=== PATIENT | male | born 1965 | race Caucasian/White ===

== ENCOUNTER → 2018-01-08 15:45 | Outpatient (CLI) | payer OTHER, SELFPAY ==
--- NOTE | 2018-01-08 15:49 | DI.RAD.S_ITS ---
PROCEDURE: XR LUMBAR SPINE 2-3V INDICATIONS: RADICULOPATHY, LUMBAR REGION TECHNIQUE: 3 views of the lumbar spine were acquired. COMPARISON: [facility], CR, XR LUMBAR SPINE 2 OR 3 VIEWS, 05/28/2015, 15:54. [facility], RF, LUMBAR TRANSFORAMINAL RYAN, 12/05/2017, 9:15. [facility], MR, MR LUMBAR SPINE WITHOUT CONTRAST, 11/23/2017, 8:14. [facility], CR, XR LUMBAR SPINE FLEXION EXTENSION, 11/22/2017, 9:56. [facility], CT, CT LUMBAR SPINE WITHOUT CONTRAST, 10/20/2017, 8:07. [facility], CT, CT LUMBAR SPINE WITHOUT CONTRAST, 10/20/2017, 8:07. FINDINGS: Bones: 5 [id number] vertebrae are present. There is mildly kyphotic bony alignment centered at L2-L3 associated with the degenerative disc disease and disc reduction at L2-3 and L3-4 levels. Additionally, there is stable grade 1 anterolisthesis of L5 on S1 fixed in position by bilateral transverse pedicle screws and vertical fixation rods crossing L5-S1. No evidence of device loosening or disruption. No vertebral body compression fractures. No suspicious bony lesions. Soft tissues: Overlying bowel gas pattern is normal. No suspicious soft tissue calcifications. IMPRESSION: Stable postsurgical changes and mild grade 1 L5 on S1 anterolisthesis, stable moderately severe degenerative disc disease L2-L3 and L3-L4 associated with mild focal kyphosis as has been previously the case. No appreciable change from prior postsurgical plain film imaging. Dictated by: Rome Charles M.D. on 01/08/2018 at 16:31 Approved by: Rome Charles M.D. on 01/08/2018 at 16:34
== END ==
PROVIDERS: Family Provider Family Medicine; PCP Family Medicine; Visit Provider Orthopaedic Surgery Orthopaedic Surgery of the Spine
DX: M51.16 Intervertebral disc disorders with radiculopathy, lumbar region (principal); M43.17 Spondylolisthesis, lumbosacral region
CPT/HCPCS: 72100

== ENCOUNTER → 2018-02-25 15:28 | Outpatient (CLI) | payer OTHER, SELFPAY ==
[2018-02-25 16:04] LABS: Add Manual Diff / Slide Review NO; Basophils Percent Auto 0.5 % (0-2); Eosinophils Percent Auto 1.3 % (2-4); Hematocrit 41.3 % (41-53); Hemoglobin 13.7 g/dL (13.5-17.5); Lymphocytes Percent Auto 26.9 % (25-40); Mean Corpuscular HGB Conc 33.2 % (30-36); Mean Corpuscular Hemoglobin 28.5 PG (26-34); Mean Corpuscular Volume 85.9 fL (80-100); Monocytes Percent Auto 6.8 % (3-14); Neutrophils Absolute Auto 3900 /uL (3000-5900); Neutrophils Percent Auto 64.5 % (50-75); Platelet Count 231 X10^3/uL (150-400); Red Blood Cell Count 4.81 X10^6/uL (4.5-5.9); White Blood Cell Count 6.1 X10^3/uL (4.5-11.0)
[2018-02-25 16:24] LABS: BUN Creatinine Ratio 18.6 (6-22); Blood Urea Nitrogen 13 mg/dL (9-20); Calcium 9.3 mg/dL (8.4-10.2); Carbon Dioxide 27 mmol/L (22-32); Chloride 104 mmol/L (98-107); Estimated Glomerular Filt Rate > 60.0 mL/min (>60); Glucose 73 mg/dL (70-100); HEMOLYSIS < 15 (0-50); Sodium 142 mmol/L (137-145)
== END ==
PROVIDERS: Family Provider Family Medicine; PCP Family Medicine; Visit Provider Physician Assistant
DX: Z01.812 Encounter for preprocedural laboratory examination (principal); Z01.818 Encounter for other preprocedural examination
CPT/HCPCS: 36415; 80048; 85025; 93005

== ENCOUNTER 2018-03-07 08:32 | Inpatient (IN) | payer OTHER, SELFPAY ==
[2018-02-25 14:14] VITALS: BMI 26.4
[2018-03-07] VITALS (14 sets, daily range): BP systolic 94–135; BP diastolic 54–74; PULSE 52–98; RESP 10–20; TEMP 36.1–36.9; O2SAT 97–100; BMI 26.4; BMI 26.0
--- NOTE | 2018-03-07 | DI.RAD.S_ITS ---
PROCEDURE: XR LUMBAR SPINE 2-3V INDICATIONS: L4-5, L5-S1 TLIF TECHNIQUE: 2 views of the lumbar spine were acquired. COMPARISON: [facility], CR, XR LUMBAR SPINE 2-3V, 01/08/2018, 15:40. FINDINGS: Bones: Immediate postoperative examination showing excellent anatomic alignment established after placement of bilateral transverse pedicle screws and vertical fixation rods crossing from L4-S1, with interbody disc cage prosthesis devices at L4-5 and L5-S1. Soft tissues: Overlying bowel gas pattern is normal. No suspicious soft tissue calcifications. IMPRESSION: Normal alignment established after posterior fusion procedure with interbody disc cage prosthesis devices, spanning from L4-S1. Dictated by: Rome Charles M.D. on 03/07/2018 at 15:09 Approved by: Rome Charles M.D. on 03/07/2018 at 15:14
[2018-03-07] MEDS: LACTATED RINGERS 1,000 ML 42 ML IV ×2 (09:29→11:25)
--- NOTE | 2018-03-07 10:22 | PM.PREOP ---
Pre-operative Note Interval Note Pre-op Check: Yes History & Physical Reviewed by Physician, Yes Exam Performed and Yes History & Physical exam performed today by Physician Changes: No
[2018-03-07] MEDS: CEFAZOLIN 2 GM/100 ML FROZ.PIGGY IV ×2 (11:17→18:30)
--- NOTE | 2018-03-07 11:52 | SUR.OPER ---
Prone on spine table, head in foam head support, padded chest and pelvic supports, gel pad at knees, lower legs supported by pillows; nipples, genitalia and toes free of pressure, arms secured on foam padded arm boards at <90 degrees abduction. Tape over blanket at thigh secured to table.
--- NOTE | 2018-03-07 11:54 | SUR.OPER ---
Egg sized bruised noted on patient's right medial upper thigh (near scrotum) during placement of Marie catheter. Dr. Caraballo notified.
[2018-03-07] MEDS: BUPIVACAINE 0.25% W/ EPI VIAL 30 ML INJ (12:05)
[2018-03-07] MEDS: BUPIVACAINE LIPOSOME 266 MG/20 ML VIAL INJ (12:06)
--- NOTE | 2018-03-07 15:04 | P.OP_ITS ---
Operative Date/Time/Diagnoses Date of procedure: 03/07/18 Time of procedure: 10:59 Pre-op diagnosis: 1. L5-S1 history of posterior lumbar fusion with pseudoarthrosis 2. L5-S1 spinal hardware breakage 3. L4-5, L5-S1 spinal stenosis. 4. L4-5, L5-S1 spondylosis with radiculopathy 5. Epidural scarring L5-S1 Post-op diagnosis: same Procedure & Clinicians Procedure: 1. L4-5, L5-S1 Postero-lateral and posterior interbody fusion 2. L4-5 L5-S1 interbody cage placement. 3. L4-5 L5-S1 decompressive laminectomy with bilateral facetecomies 4. L4-5 L5-S1 Posterior segmental instrumentation 5. L5-S1 posterior non-segmental hardware removal 6. L5-S1 exploration of fusion with right hemilaminectomy 7. [place] of bone marrow from iliac crest 8. Utilization of microsurgical technique and operating microscope Same procedure as scheduled: Yes Indications: Patient has been having chronic back pain and worsening lumbar radiculopathy. Patient had previous lumbar instrumented fusion with pseudoarthrosis and broken hardware of x-ray and CT scan. After failing additional conservative management and after discussing risks and benefits of treatment options patient elected to proceed with surgical treatment. Patient failed multiple conservative management with worsening pain weakness and numbness in her lower extremity. Patient has been having difficulty performing activity of daily living. After discussing risks benefits of treatment options, patient elected proceed with surgery. Surgeon: Fariha Caraballo Inside Sales Advertising Executive: Guillermina Nash Click Yes if Unassisted: No Anesthesia Type: General Operative Notes Closure Type: primary Specimen(s): none sent Implants & Drains: Globus revolve screws, RIse cages Applied: catheter Estimated Blood Loss (mL): 100 Blood products transfused: none Procedure in detail: Patient was seen in the preoperative area. Risks and benefits of the surgery was discussed with the patient. Informed consent was obtained from the patient and placed in the chart. Surgical site was marked. Patient was taken to the operative room. General anesthesia was administered. Prophylactic antibiotic was given to the patient less than 30 min before the incision was made. Patient was placed into a prone position on the Lucius table. Patient's back was then prepped and draped in the sterile fashion. Time- out was performed at this time. Incision was made over the L4-5 L5-S1 interval on the right side. Fascia was incised in line with skin incision. Patient's previously placed hardware over the L5-S1 level was identified by dissecting down to the level the hardware using a Bovie and a Muse. The locking caps which was removed using Medtronic screwdriver. The locking kd was then removed from the [place]ips of the pedicle screws using a Justus. The pedicle screws were then removed using the screwdriver. The screws were found to have good purchase on the right side. The Globus and MARS retractors was then placed into the wound and docked onto the L4 and L5 lamina using C-arm guidance. Using microsurgical technique and operating microscope a laminectomy facetectomy was performed by removing the L4 and L5 lamina and the L4-5 L5-S1 facet. The disc space at L4-5 L5-S1 level was identified next. And a total diskectomy was performed at L4-5 L5-S1 level. The endplates were decorticated using a rasp and shaver. The total diskectomy and decortication was performed at L4-5 and L5-S1 level in order to to accomplish a L4-5 L5-S1 fusion. The local bone from the laminectomy and facetectomy was saved for local bone grafting. After the total diskectomy and decortication was completed, Globus viacell bone graft material was combined with local bone that was harvested earlier. At this time, a separate skin is incision was made over the iliac crest. A Jamshidi needle was inserted into the iliac crest through a separate skin incision. 5 cc of bone marrow aspiration was obtained through the separate skin incision using a Jamshidi needle from the iliac crest. The bone marrow aspiration was combined with local bone and the via cell bone grafting material. The bone grafting material was placed into the L4- 5 L5-S1 interbody space along with a expandable cage. The cage was expanded to its maximum height using the torque limiting screwdriver. At this time a mirror image incision was made on the left side. The fascia was incised in line with the skin incision. Patient's previously placed hardware on the left side was then removed in the same fashion as it was on the right side. The screws on the left were found have lose purchase at L5. In the S1 screw on the left was found to be broken as identified on the x-ray preoperatively. We left a broken S1 screw tip inside the S1 bone as discussed with the patient prior to surgery. The pedicle screws were found to be placed right through the facet joint at L4-5 and L5-S1 on both sides. During the process of removal of the hardware we identified significant amount of heterotopic bone from attempted previous fusion. The bone did not provide any structural integrity. It did make removal of the hardware significantly more difficult. The fusion mass on the left side was exposed by performing a left-sided hemilaminectomy at L5-S1 level. The hemilaminectomy was performed using the Kerrison rongeur to undercut the lamina as well removing additional epidural scar tissue for purpose of decompressing the epidural space. The fusion mass was explored and was found have visible motion indicating pseudoarthrosis at L5-S1 level. Globus MARS retractor was inserted and docked onto the L4-5 L5-S1 posterolateral gutter. Using the power drill, posterior-lateral decortication was performed at L4-5 L5-S1 level until bleeding cortical bone was identified. The remaining bone grafting material was placed into the L4-5 L5-S1 posterior lateral gutter he order to accomplish posterolateral fusion at the L4-5 L5-S1 level. Using the double C-arm technique, pedicle screws were placed into the L4 and L5 pedicles bilaterally and on the right at S1. This was done by placing the Jamshidi needle into the pedicles, then placing the guidewires over the Jamshidi needle, and finally placing the cannulated screws over the guidewires bilaterally. After the pedicle screws were placed, 2 titanium rods was locked into the heads of the pedicle screws using locking caps and torque limiting screwdriver. After all the hardware was placed, and confirmed with AP and lateral C-arm imaging, the wound was then irrigated with sterile normal saline and packed with [place] gauze for 3 min to accomplish hemostasis. After the gauze was removed the deep fascia was closed with #1 Vicryl suture. The subcutaneous layer was closed with 2-0 Vicryl. The skin was closed with skin marisabel. Patient tolerated the procedure well. There were no complications. Complications: none Condition: stable Disposition: PACU Plan for aftercare: Admit to inpatient hospital
[2018-03-07] MEDS: HYDROMORPHONE 2 MG INJ 0.5 MG IV ×4 (15:14→15:42)
[2018-03-07] MEDS: hydrOXYzine 50 MG/ML INJ 25 MG IM (15:27)
--- NOTE | 2018-03-07 15:32 | SUR.PHASEI ---
pt arrived, awoke c/o lower back pain, follows commands and maew. medicated with dilaudid and vistaril
[2018-03-07] MEDS: LORazepam 2 MG/ML SYRINGE 0.5 MG IV (15:44)
--- NOTE | 2018-03-07 16:40 | SUR.PHASEI ---
report to ted zielger brought to room 215 and left in stable condition.
--- NOTE | 2018-03-07 17:06 | PC.NURSE ---
PT to acute care from PACU. Drowsy and oriented. Spouse at bedside. Reports pain 8/10, in right/lower back, aching. Repositioned. SCDs applied. Oriented to room/call light.
[2018-03-07] MEDS: hydrOXYzine pamoate 25 MG CAPSULE PO ×2 (17:33→21:34)
[2018-03-07] MEDS: OXYCODONE IR 5 MG TABLET 10 MG PO ×3 (17:33→23:35)
[2018-03-07] MEDS: SODIUM CHLORIDE 0.9% 1,000 ML 100 ML IV (17:40)
[2018-03-07] MEDS: SENNOSIDES 8.6 MG TABLET 17.2 MG PO (20:42)
[2018-03-07] MEDS: DOCUSATE 100 MG CAPSULE PO (20:42)
[2018-03-07] MEDS: HYDROMORPHONE 1 MG INJ 0.5 MG IV (21:37)
--- NOTE | 2018-03-07 22:00 | PC.NURSE ---
Evening SHift Note- recieved report from KENRICK Roberto from PACU at 1611, patient arrived to room via bed shortly after. Patient alert and oriented and able to make needs known to staff. Oriented Patient to bed and bed controls, room, bathroom, lights, menu, phone, and call fleming/TV remote. Gauze and tegaderm dressing to TLIF surgical site C/D/I. Foot SCD's applied patient agrees to call for assistance. Safety measures in place. call fleming and phone within reach. Will Continue to monitor.
[2018-03-08] MEDS: HYDROMORPHONE 1 MG INJ 0.5 MG IV ×2 (00:52→06:07)
[2018-03-08] MEDS: CEFAZOLIN 2 GM/100 ML FROZ.PIGGY IV (02:45)
[2018-03-08] MEDS: OXYCODONE IR 5 MG TABLET 10 MG PO ×2 (02:45→06:07)
[2018-03-08] MEDS: SODIUM CHLORIDE 0.9% 1,000 ML 100 ML IV (02:45)
[2018-03-08 02:53] VITALS: BP 105/64; PULSE 81; RESP 16; TEMP 36.9; O2SAT 99
[2018-03-08 05:51] LABS: Hematocrit 35.4 % (41-53); Hemoglobin 12.3 g/dL (13.5-17.5)
[2018-03-08 08:00] VITALS: BP 110/57; PULSE 80; RESP 18; TEMP 37; O2SAT 98
--- NOTE | 2018-03-08 09:08 | PM.PNPO.1 ---
Subjective Date Patient Seen: 03/08/18 Time Patient Seen: 09:09 Interval history: Patient is postop day 1. Status post L4-5, L5-S1 TLIF by Dr. Caraballo. Patient is having issues with pain on the right side from the her right lower back to right hamstring and thigh. Denies any numbness or tingling in the legs. Has not not been up with physical therapy yet. Marie catheter still in. Pain not really controlled with oxycodone 10 mg. Plan is to be initially discharged to home. Exam Vital Signs (past 8 hours): - 03/08/18 02:53 Temperature 98.4 F Pulse Rate 81 Respiratory Rate 16 Blood Pressure 105/64 Pulse Oximetry 99 Oxygen Delivery Method Room Air Oxygen Flow Rate 0 Narrative Exam Narrative: Patient in bed. Alert orient x3. Back dressing clean dry and intact. Pain in the right lower back down to right hamstring. 5/5 BLE strength. Neurovascular status intact. Bilateral calf soft and nontender. Objective Labs Result Diagrams: 03/08/18 05:19 Labs: Laboratory Results - last 24 hr 03/08/18 05:19 Hgb 12.3 L Hct 35.4 L Assessment & Plan Post-op Postoperative Procedures Operation Date: 03/07/18 10:15 Actual Procedures Side Surgeon p L5-S1 HWR, exploration of fusion, revision laminectomy, L5-S1 TLIF w/cage placement, L4-5 hemilaminectomy, L4-5, L5-S1 TLIF Fariha Caraballo MD postop day 1. Increase oxycodone to 10-20mg as needed for pain. Started patient on steroid burst. The patient to ambulate with physical therapy today. TASHA Marie 1 more ambulatory. Possible home in next day or two if pain under control. Quality VTE Deep Vein Thrombosis/Pulmonary Embolism Present on Admission: No
[2018-03-08] MEDS: DEXAMETHASONE 10 MG/ML VIAL IV (09:49)
[2018-03-08] MEDS: DOCUSATE 100 MG CAPSULE PO ×2 (09:49→20:20)
[2018-03-08] MEDS: hydrOXYzine pamoate 25 MG CAPSULE PO ×3 (09:50→19:20)
[2018-03-08] MEDS: OXYCODONE IR 5 MG TABLET 20 MG PO ×5 (09:50→22:24)
--- NOTE | 2018-03-08 10:54 | PT.IIE ---
Current Diagnoses Spinal stenosis, lumbar region without neurogenic claudication (03/07/18) Unspecified fracture of unspecified lumbar vertebra, initial encounter for closed fracture (03/07/18) Breakdown (mechanical) of internal fixation device of vertebrae, initial encounter (03/07/18) Other mechanical complication of other internal orthopedic devices, implants and grafts, initial encounter (03/07/18) Surgery Performed Operation Date: 03/07/18 10:15 Actual Procedures p L5-S1 HWR, exploration of fusion, revision laminectomy, L5-S1 TLIF w/cage placement, L4-5 hemilaminectomy, L4-5, L5-S1 TLIF - Fariha Caraballo MD Surgical History (Last Updated 02/25/18 @ 14:28 by Suzy Hassan RN) H/O vasectomy (Acute) History of arthroplasty of left knee (Acute ~2014) Hx of arthroscopy of left knee (Acute) Hx of arthroscopy of right knee (Acute) Hx of hernia repair (Acute ~03/2016) Hx of left knee surgery (Acute ~1989) S/P LASIK surgery of both eyes (Acute) S/P lumbar fusion (Acute ~2010) Medical History (Last Updated 02/25/18 @ 14:28 by Suzy Hassan RN) Biceps muscle tear (Acute ~2010) Kidney stones (Acute) Migraines (Acute) Right hip pain (Acute) [place] teeth extracted (Acute) Physical Therapy Inpatient Evaluation/Re-Eval M1 PT/OT-IP Prior Functional Status Start: 03/08/18 10:25 Freq: NEEDED Status: Active Protocol: Document 03/08/18 10:25 NFW (Rec: 03/08/18 10:54 NFW [id number]) Medical Review Prior Functional Status Medical History Reviewed Yes Mobility and Gait Prior to surgery 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 He was not able to participate in any exercise program due to pain. His form of exercise is usually lifting weights, riding a spin bike and walking on a treadmill. Activities of Daily Living and IADL's Patient was mostly independent in dressing, he found tying his shoes and donning socks to be challenging. If needed his would assist. Patient was independent in hygiene activites, uses a walk in shower with threshold. Social History Household Members spouse Living Arrangements House Number of Floors (Floors) Two Floors Number of Stairs To Enter/Railing? 1 step entering, no handrails. 13 steps to bedrooms, handrail on the left when ascending. 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 M2 PT-IP Current Condition Start: 03/08/18 10:25 Freq: NEEDED Status: Active Protocol: Document 03/08/18 10:25 NFW (Rec: 03/08/18 10:54 NFW [id number]) Physical Therapy Current Condition Current Condition Evaluation Date 03/08/18 Treatment Diagnosis S/P Lumbar Fusion L4-5, L5-S1, removal previous hardware Precautions Lumbar Precautions Log Roll No Twisting Limit Bending Lifting Restriction of 10 lbs Gait Belt above Incisional Area Weight Bearing Status Weight Bearing Status Full Weight Bearing M3 PT-IP Subjective Start: 03/08/18 10:25 Freq: NEEDED Status: Active Protocol: Document 03/08/18 10:25 NFW (Rec: 03/08/18 10:54 NFW [id number]) Subjective Physical Therapy Visit Type Type Initial Evaluation Visit Start Time 09:35 Visit Stop Time 10:25 Total Visit Minutes 50 Notes Patient in a fair amount of pain, nursing informed, pain meds given. Number of GENERATING PLANT SUPERINTENDENT Visits 0 Physical Therapy Visit Comments Patient Comments Patient in a fair amount of pain but willing to proceed with treatment as he usually feels better after he moves around. Patient Goals Return home with . Therapy Pain Assessment Pain When Pain Assessed At Rest Pain Present Pain Present Pain Reported Location Left Knee Intensity 8 Scale Used Numeric (1 - 10) M4 PT-IP Mobility and Gait Start: 03/08/18 10:25 Freq: NEEDED Status: Active Protocol: Document 03/08/18 10:25 NFW (Rec: 03/08/18 10:54 NFW [id number]) PT-Bed Mobility Assessment Rolling Type of Rolling Log Rolling Bilateral Level of Assist Standby Assistance Supine to Sit Supine to Sit Contact Guard Assistance Sit to Supine Sit to Supine Minimal Assistance Scooting Scooting to Edge of Bed Independent Scooting Up and Down in Bed Independent PT-Transfer Assessment Sit to and From Stand Sit to and from Stand Contact Guard Assistance 1 Person Assistance Equipment Transfer Assistive Device Front Wheeled Walker Transfers Transfer Destination Bed Chair Transfer Ability Level of Assist Contact Guard Assistance 1 Person Assistance Comments Mobility Comments Good awareness of neutral position of the spine with transitional activities. Gait Assessment Gait Gait Assistance Required: Contact Guard Assist Distance (Feet) 30 Able to Maintain Weight Bearing Status Yes During Gait Assistive Devices Assistive Device Gait Belt Front Wheeled Walker Orthotic/Prosthetic Devices or Brace: No Gait Deviations General Gait Pattern Decreased Stride Length Factors Limiting Gait Function Factors Limiting Gait Function Decreased Sensation Decreased Strength Pain Comments Gait Comments Pain level remained the same at 8/10 with ambulation. Patient cautious with movement . M5 PT-IP Objective Assessments Start: 03/08/18 10:25 Freq: NEEDED Status: Active Protocol: Document 03/08/18 10:25 NFW (Rec: 03/08/18 10:54 NFW [id number]) Gross Range of Motion Upper Extremity ROM Assessment Within Functional Limits Lower Extremity ROM Impairments Restricted ROM left knee secondary to TKR and other multiple knee surgeries. Sensation Assessment Sensation Gross Sensation WNL Comments Sensation Comments Main complaint of pain in LB and right hip. Minimal numbness and tingling LEs. Muscle Tone Muscle Tone WNL Yes M6 PT-IP Treatment Start: 03/08/18 10:25 Freq: NEEDED Status: Active Protocol: Document 03/08/18 10:25 NFW (Rec: 03/08/18 10:54 NFW [id number]) Physical Therapy Treatment Exercises Exercises Ankle Pumps Education Education Provided Precautions Post-Op Packet M7 PT-IP Assessment and Plan Start: 03/08/18 10:25 Freq: NEEDED Status: Active Protocol: Document 03/08/18 10:25 NFW (Rec: 03/08/18 10:54 NFW [id number]) PT Summary Assessment and Plan Potential Rehabilitation Potential Excellent Status of Condition at Evaluation Evolving Summary Impairments Pain Strength Balance Sensation Bed Mobility Transfers Gait Activity Tolerance Progress Towards Goals Progressing Toward Goals Assessment Summary Patient receptive to all information provided. Restrictedmainly by pain in the lowback and right hip. Good awareness of neutral posture and importance to maintain with all functional activities. Goals Bed Mobility Goal Independent Transfer Goal Independent Gait Goal Standby Assistance Gait Distance 100' Other Goals Ability to ascend and descend stairs safely with CGA. Days to Meet Goals 2 Frequency of Treatment Frequency Of Treatment Twice a Day Treatment Plan Physical Therapy Treatment Plan Bed Mobility Training Transfer Training Gait Training Therapeutic Exercise Balance Retraining Post Op Education Discharge Planning Hot or Cold Pack Neuromuscular Re-ed Coordination Retraining Manual Therapy Recommendations To Nursing Amount of Assist Needed 1 Person Assist Discharge Recommendations PT Discharge Recommendations Home Equipment Needed for Home Before May need FWW. Discharge
--- NOTE | 2018-03-08 11:13 | CM.DANOTE ---
Patient is a 52 year old male who was admitted on 03/07/18 for TLIF. Pt has PRE DIM for insurance and her PCP is Katie Belcher. EMR was reviewed. Per Jerilyn MAHMOOD, pt not stable for d/c yet today but possible d/c tomorrow pending progress with PT/OT and pain. PT/OT have been ordered and pending. 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 Pt is Independent with ADL's at baseline at drives and denies any hx of HH or SNF. Pt states that his spouse plans to be available for at least a couple days to provide assist but then will need to return to work but pt has local supportive family who can assist and a young adult Dtr who can be available to come stay with him and assist if needed. Pt does not anticipate any SW needs at d/c and states he just wants to have his pain controlled prior to d/c and his spouse can provide transport at d/c. Plan: SW to follow after PT/OT eval and recommendations to confirm that pt will be safe for d/c home with family assist when medically stable, possibly tomorrow (Sat). SW to follow for any further identified discharge planning needs. EARL Salguero Discharge Planning/Care Management CM Discharge Assessment Start: 03/08/18 11:12 Freq: Status: Active Protocol: Document 03/08/18 11:12 (Rec: 03/08/18 11:13 [id number]) Discharge Planning Assessment Assigned Radio Communications Superintendent EARL Smith Advance Directives? No: Pt will burr picker information today at hospital Advance Directives on File No History Provided By Patient Medical Record Has Patient been admitted in last 30 No days? Prior Living Arrangements House Household Members spouse Type of transporation used prior to Drives own vehicle admit Comment Patient lives at home with his spouse who works timers inspector but has local supportive family and young adult Dtr who can assist if needed. Independent with ADL's Yes Is patient alert and oriented? Yes Caregiver for Another No Comment Likely home with family assist pending PT/OT eval Barriers to Discharge No Discharge Plan Home Referrals Initiated None needed Whiteboard Updated in Patient Room with Yes name and ext. # of Radio Communications Superintendent Review Status In Process Please Provide Date Initial DC 03/08/18 Assessment Was Performed Next Review Type Continued Stay Review Pre-Anesthesia Assessment Start: 02/25/18 14:14 Freq: Status: Complete Protocol: Document 02/25/18 14:14 CAB (Rec: 02/25/18 14:39 CAB [id number]) Pre-Anesthesia Assessment Patient Information Reviewed Via Phone Assessment Assessment Completed With Patient Primary Care Provider Katie Belcher Seen Specialist in Last 12 Months Yes Specialist Seen Orthopedist Primary Language Georgian [employer] Miner Required No Height 185.42 cm Weight 90.718 kg Body Mass Index (BMI) 26.4 Hearing Ability Normal Visual Impairment No Limitations Visual Assist None Dentition Type Teeth, Natural Present Barriers to Learning None Hx Anesthesia Reactions Yes: Post-op nausea/vomiting Hx Family Anesthesia Reaction No Hx Malignant Hyperthermia No Hx Blood Transfusions No Anesthesia Review Requested No Solution Maker No alcohol intake current alcohol intake frequency a few times a week Smoking Status Never smoker Substance Use Type does not use Pain Present Pain Reported Musculoskeletal Symptoms Back Pain Joint Pain Muscle Weakness History of Falling (Recent or History of No ) Patient is completely paralyzed or No completely immobile Mental Status Oriented to own ability Is patient on oxygen? No Does patient have SMITH/SOB No Hx Sleep Apnea No Suspected Sleep Apnea No Currently Taking a Beta Ty No Can You Climb a Flight of Stairs Without Yes SOB Hx Chest Pain No Hx SOB No Hx Syncope or Dizziness No Anti-Coagulant Therapy No Has a Front End Ui Developer No Cardiac Testing No Hx Pacemaker/ICD No Pacemaker Rep Required? No Cardiac Clearance Received Not Applicable Diet Type At Home Other Comment Vegan Urinary Catheter Present No Hx Urinary Self Catheterization No Diabetes No Hx Drug Resistant Organism No Presence of External or Internal Medical No Devices Have you traveled outside the [facility] States in the last 30 days? Marital Status Lives With spouse Prior Living Arrangements House Number of Floors (Floors) Two Floors Number of Stairs To Enter/Railing? 1 step, no railing Support System Family Friend(s) Spouse Does the Patient Have Assistance After Yes Surgery Patient Discharge Plan Description Return Home Comment Pt advised 1-2 night length of stay per surgeon's office Feels Safe in Current Environment Yes Been Physically Hurt or Threatened By a No Person in Current Environment Do you have thoughts of harming yourself None or others? Are you currently considering suicide? No Do you have a plan to hurt yourself or No Plan others? Do You Have Any Spiritual Beliefs That No May Affect Your HC Choices? Do You Have Any Cultural Practices That No May Affect Your HC Choices? Spiritual Referral None Who Can We Speak to About Patient's Care Family, friends Identifying Code for Release of Patient Declines to issue Information Health Care Proxy/Next of Kin Georgina () Health Care Proxy Emergency Contact Name Georgina () Emergency Contact Advance Directives? No: Pt will burr picker information today at hospital Advance Directives on File No Requested Patient Bring Advanced Yes Directives DOS Power of Wood Lathe Operator No PAC Instructions Do not shave/clip surgical site Durable medical equipment Nasal antibiotic No ETOH/petroleum product on skin DOS NPO Post-op transportation Pre-surgical wash Sturdy shoes/comfortable clothes Do not bring valuables and remove jewelry
--- NOTE | 2018-03-08 12:04 | OT.IP.EVAL ---
Current Diagnoses Spinal stenosis, lumbar region without neurogenic claudication (03/07/18) Unspecified fracture of unspecified lumbar vertebra, initial encounter for closed fracture (03/07/18) Breakdown (mechanical) of internal fixation device of vertebrae, initial encounter (03/07/18) Other mechanical complication of other internal orthopedic devices, implants and grafts, initial encounter (03/07/18) Surgery Performed Operation Date: 03/07/18 10:15 Actual Procedures p L5-S1 HWR, exploration of fusion, revision laminectomy, L5-S1 TLIF w/cage placement, L4-5 hemilaminectomy, L4-5, L5-S1 TLIF - Fariha Caraballo MD Past Medical History (Last Updated 02/25/18 @ 14:28 by Suzy Hassan RN) Biceps muscle tear (Acute ~2010) Kidney stones (Acute) Migraines (Acute) Right hip pain (Acute) [place] teeth extracted (Acute) Surgical History (Last Updated 02/25/18 @ 14:28 by Suzy Hassan RN) H/O vasectomy (Acute) History of arthroplasty of left knee (Acute ~2014) Hx of arthroscopy of left knee (Acute) Hx of arthroscopy of right knee (Acute) Hx of hernia repair (Acute ~03/2016) Hx of left knee surgery (Acute ~1989) S/P LASIK surgery of both eyes (Acute) S/P lumbar fusion (Acute ~2010) Occupational Therapy Inpatient Evaluation/Re-Eval M1 PT/OT-IP Prior Functional Status Start: 03/08/18 10:25 Freq: NEEDED Status: Active Protocol: Document 03/08/18 10:25 NFW (Rec: 03/08/18 10:54 NFW [id number]) Medical Review Prior Functional Status Medical History Reviewed Yes Mobility and Gait Prior to surgery 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 He was not able to participate in any exercise program due to pain. His form of exercise is usually lifting weights, riding a spin bike and walking on a treadmill. Activities of Daily Living and IADL's Patient was mostly independent in dressing, he found tying his shoes and donning socks to be challenging. If needed his would assist. Patient was independent in hygiene activities, uses a walk in shower with threshold. Social History Household Members spouse Living Arrangements House Number of Floors (Floors) Two Floors Number of Stairs To Enter/Railing? 1 step entering, no handrails. 13 steps to bedrooms, handrail on the left when ascending. 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 M1 PT/OT-IP Prior Functional Status Start: 03/08/18 11:37 Freq: NEEDED Status: Active Protocol: Document 03/08/18 11:37 [facility] (Rec: 03/08/18 12:04 [facility] [id number]) Medical Review Prior Functional Status Medical History Reviewed Yes Diet/Fluid Consistency Regular Thin Liquids Communication Independent. 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 He was not able to participate in any exercise program due to pain. His form of exercise is usually lifting weights, riding a spin bike and walking on a treadmill. Activities of Daily Living and IADL's Patient was mostly independent in dressing, he found tying his shoes and donning socks to be challenging. If needed his would assist. Patient was independent in hygiene activities, uses a walk in shower with threshold. Prior Functional Level (Other details) Pt a teacher at [employer]. Social History Household Members spouse Living Arrangements House Number of Floors (Floors) Two Floors Number of Stairs To Enter/Railing? One step to get through the front door and 13 steps up wit left hand rail going up. Home Environment Standard Height Toilet Tub/Shower Doors Employment Status [employer] Employed M2 OT-IP Current Condition Start: 03/08/18 11:37 Freq: Status: Active Protocol: Document 03/08/18 11:37 [facility] (Rec: 03/08/18 12:04 [facility] [id number]) Occupational Therapy Current Condition Current Condition Evaluation Date 03/08/18 Treatment Diagnosis Spinal Stenosis Diagnosis Onset Date 03/07/18 Post Operative Precautions Lumbar Precautions Log Roll No Twisting Limit Bending Lifting Restriction of 10 lbs Gait Belt above Incisional Area Weight Bearing Status Weight Bearing Status Weight Bear as Tolerated M3 OT- IP Subjective and Pain Start: 03/08/18 11:37 Freq: Status: Active Protocol: Document 03/08/18 11:37 [facility] (Rec: 03/08/18 12:04 [facility] [id number]) OT- Subjective Occupational Therapy Visit Type Type Initial Evaluation Visit Start Time 10:20 Visit Stop Time 11:15 Total Visit Minutes 55 Occupational Therapy Visit Comments Patient Comments Pt agreeable to get up and just finished seeing PT. OT Pain Assessment Pain When Pain Assessed During Mobility Pain Present Pain Present Pain Reported Location Back Intensity 9 Scale Used Numeric (1 - 10) M4 OT- IP ADL's Start: 03/08/18 11:37 Freq: Status: Active Protocol: Document 03/08/18 11:37 [facility] (Rec: 03/08/18 12:04 [facility] [id number]) OT ADL-Grooming General Evaluation Grooming Ability Standby Assistance Areas Needing Assistance Retrieving/Set-up of Grooming Items Comments OT Grooming Comments Pt needing assist for set-up and SBA with FWW. OT ADL-Oral Care General Eval Oral Care Ability Independent Comments Oral Care Comments Educated to sip into a cup or bend at the hips to lean forwards and spit. OT ADL-Dressing General Eval Lower Body Dressing Ability Maximum Assistance Comments OT Dressing Comments Educated pt on use of socks aid, motion picture operator for LB dressing needs. AED issued. OT ADL-Toileting Comments OT Toileting Comments Pt still has catheter in. It was determined due to best to use BSC over toilet as pt's has pain with left knee as well. Educated pt to stand for wiping. OT ADL-Bathing Comments OT Bathing Comments Pt states to get a shower chair. M5 OT- IP IADL's Start: 03/08/18 11:37 Freq: Status: Active Protocol: Document 03/08/18 11:37 [facility] (Rec: 03/08/18 12:04 [facility] [id number]) OT-Instrumental Activities of Daily Living Home Safety Awareness Awareness of Need for Assistance at Home Good Awareness Ability to Problem Solve Emergency Able to Problem Solve Situations M6 OT- IP Functional Cognition Start: 03/08/18 11:37 Freq: Status: Active Protocol: Document 03/08/18 11:37 [facility] (Rec: 03/08/18 12:04 [facility] [id number]) Cognitive Factors Limiting Selfcare Function Cognitive Ability Level of Alertness Alert Patient Orientation Name Place Situation Attention Span Ability Capable of Focused Attention Capable of Sustained Attention Ability to Follow Commands Able to Follow Multi-Step Commands Memory Description Short Term Impaired Safety Awareness Decreased Ability to Apply Precautions Cognitive Comments Cognitive Assessment Comments Pt needing vc to incorporate back precautions and vc for log rolling. OT- Vision and Hearing OT- Hearing Assessment OT- Hearing Assessment WFL OT- Vision Assessment Visual Acuity WFL M7 OT- IP Mobility and Balance Start: 03/08/18 11:37 Freq: Status: Active Protocol: Document 03/08/18 11:37 [facility] (Rec: 03/08/18 12:04 [facility] [id number]) OT- Bed Mobility Assessment Rolling Type of Rolling Roll to Right Level of Assistance Standby Assistance Bedrails Supine to Sit Supine to Sit Assist Standby Assistance Sit to Supine Sit to Supine Assist Minimal Assistance OT-Transfer Assessment Sit to and From Stand Sit to and from Stand Standby Assistance Contact Guard Assistance Transfers Transfer Ability Standby Assistance Technique Transfer Destination Bed Toilet Transfer Technique Stand Step Pivot Devices Transfer Assistive Devices Gait Belt 4 Wheeled Walker Comments Mobility Comments Pt initially not engaging his quads when trying to stand and grabbing his FWW to stand. OT- Balance Assessment Sitting Balance and Reactions Static Sitting Balance Ability Normal Dynamic Sitting Balance Ability Normal Standing Balance and Reactions Static Standing Balance Ability Good M8 OT- IP Objective Assessments Start: 03/08/18 11:37 Freq: Status: Active Protocol: Document 03/08/18 11:37 [facility] (Rec: 03/08/18 12:04 [facility] [id number]) OT Gross Range of Motion Upper Extremity Range of Motion Assessment Within Functional Limits OT-Muscle Tone Assessment Muscle Tone WNL Yes M9 OT- IP Assessment and Plan Start: 03/08/18 11:37 Freq: Status: Active Protocol: Document 03/08/18 11:37 [facility] (Rec: 03/08/18 12:04 [facility] [id number]) OT Summary Assessment and Plan Potential Rehabilitation Potential Good Analytic Complexity at Evaluation Low Summary OT Impairments Pain Balance Functional Cognition Functional Mobility Dressing Toileting Bathing Toilet Transfers Shower Transfers Progress Towards Goals Slow Progress due to Pain Assessment Summary Pt low complexity and main barriers are steps and pain. Pt has good family support and to be home to assist through the weekend and other family members able to assist if needed as goes back to work. Continue inpt OT to work on AED for ADL's and equipment needs. Goals Grooming Goal Independent Dressing Goal Standby Assistance Toileting Goal Standby Assistance Bathing Goal Minimal Assistance Toilet Transfer Goal Standby Assistance Shower Transfer Goal Contact Guard Assistance Patient/Caregiver Education Goal Caregiver Independent Assisting Patient Days to Meet Goals 3 Frequency of Treatment Frequency Of Treatment Once a Day Treatment Plan OT Treatment Plan ADL Training Functional Cognition Training Functional Mobility Patient/Family Education Discharge Planning Other Treatment Recommendations and Next Shower and family training. Treatment Focus Discharge Recommendations OT Discharge Recommendations Home with Assistance Home Equipment Needs Shower chair, BSC, FWW
[2018-03-08] MEDS: DEXAMETHASONE 4 MG/ML VIAL IV ×3 (13:30→23:40)
[2018-03-08] MEDS: ACETAMINOPHEN 325 MG TABLET 650 MG PO (14:13)
[2018-03-08 14:45] VITALS: BP 106/55; PULSE 80; RESP 17; TEMP 37; O2SAT 96
[2018-03-08 15:40] VITALS: BP 132/65; PULSE 83; RESP 18; TEMP 37.1; O2SAT 94
--- NOTE | 2018-03-08 15:58 | PC.NURSE ---
Ortho/Pain: Pain concerns this am, pain worse today then yesterday. Rt side of back, rt hip and down rt leg. Oxycodone has not been holding for pain per pt. PA made aware and steroids started and oxycodone was increased. Pt reports this afternoon his pain is in better control and he was able to work w/PT, even amb in the hallways. Has been able to tolerate diet. Is following his lami precautions and log rolling. Cont w/poc.
--- NOTE | 2018-03-08 16:44 | PT.IPTN ---
Current Diagnoses Spinal stenosis, lumbar region without neurogenic claudication (03/07/18) Unspecified fracture of unspecified lumbar vertebra, initial encounter for closed fracture (03/07/18) Breakdown (mechanical) of internal fixation device of vertebrae, initial encounter (03/07/18) Other mechanical complication of other internal orthopedic devices, implants and grafts, initial encounter (03/07/18) Surgery Performed Operation Date: 03/07/18 10:15 Actual Procedures p L5-S1 HWR, exploration of fusion, revision laminectomy, L5-S1 TLIF w/cage placement, L4-5 hemilaminectomy, L4-5, L5-S1 TLIF - Fariha Caraballo MD Physical Therapy Treatment Note M2 PT-IP Current Condition Start: 03/08/18 10:25 Freq: NEEDED Status: Active Protocol: Document 03/08/18 10:25 NFW (Rec: 03/08/18 10:54 NFW [id number]) Physical Therapy Current Condition Current Condition Evaluation Date 03/08/18 Treatment Diagnosis S/P Lumbar Fusion L4-5, L5-S1, removal previous hardware Precautions Lumbar Precautions Log Roll No Twisting Limit Bending Lifting Restriction of 10 lbs Gait Belt above Incisional Area Weight Bearing Status Weight Bearing Status Full Weight Bearing M3 PT-IP Subjective Start: 03/08/18 10:25 Freq: NEEDED Status: Active Protocol: Document 03/08/18 15:27 MACY (Rec: 03/08/18 16:44 LJ [id number]) Subjective Physical Therapy Visit Type Type Treatment Note Visit Start Time 15:27 Visit Stop Time 16:02 Total Visit Minutes 25 Notes Pt willing to get up amd ambulate in hallway despite pain. States he would ratherwalk before than after pain meds Therapy Pain Assessment Pain When Pain Assessed During Mobility Pain Present Pain Present Pain Reported Location Left Knee Intensity 6 M4 PT-IP Mobility and Gait Start: 03/08/18 10:25 Freq: NEEDED Status: Active Protocol: Document 03/08/18 15:27 MACY (Rec: 03/08/18 16:44 LJ [id number]) PT-Bed Mobility Assessment Rolling Type of Rolling Log Rolling Bilateral Level of Assist Standby Assistance Supine to Sit Supine to Sit Standby Assistance Sit to Supine Sit to Supine Standby Assistance Scooting Scooting to Edge of Bed Independent Scooting Up and Down in Bed Independent PT-Transfer Assessment Sit to and From Stand Sit to and from Stand Standby Assistance Equipment Transfer Assistive Device Front Wheeled Walker Transfers Transfer Destination Bed Transfer Ability Level of Assist Contact Guard Assistance 1 Person Assistance Comments Mobility Comments Pt SBA for bed mobility and transfers. With cueing to activate core muscles, pt was able to stand w/o use of FWW Gait Assessment Gait Gait Assistance Required: Standby Assistance Contact Guard Assist Distance (Feet) 300 Able to Maintain Weight Bearing Status Yes During Gait Assistive Devices Assistive Device Gait Belt Front Wheeled Walker Orthotic/Prosthetic Devices or Brace: No Gait Deviations General Gait Pattern Decreased Stride Length Factors Limiting Gait Function Factors Limiting Gait Function Decreased Sensation Decreased Strength Pain Comments Gait Comments Pain level decreased since last treatment. Pt ambulates with erect posture and appropriate body position within FWW. Pt stood talking with staff for several minutes with no LOB. Required cueing for heel strike and was able to implement appropriately. M5 PT-IP Objective Assessments Start: 03/08/18 10:25 Freq: NEEDED Status: Active Protocol: Document 03/08/18 10:25 NFW (Rec: 03/08/18 10:54 NFW [id number]) Gross Range of Motion Upper Extremity ROM Assessment Within Functional Limits Lower Extremity ROM Impairments Restricted ROM left knee secondary to TKR and other multiple knee surgeries. Sensation Assessment Sensation Gross Sensation WNL Comments Sensation Comments Main complaint of pain in LB and right hip. Minimal numbness and tingling LEs. Muscle Tone Muscle Tone WNL Yes M6 PT-IP Treatment Start: 03/08/18 10:25 Freq: NEEDED Status: Active Protocol: Document 03/08/18 15:27 LJ (Rec: 03/08/18 16:44 LJ [id number]) Physical Therapy Treatment Exercises Exercises Gluteal Sets M7 PT-IP Assessment and Plan Start: 03/08/18 10:25 Freq: NEEDED Status: Active Protocol: Document 03/08/18 15:27 LJ (Rec: 03/08/18 16:44 LJ [id number]) PT Summary Assessment and Plan Potential Rehabilitation Potential Excellent Status of Condition at Evaluation Evolving Summary Impairments Pain Strength Balance Gait Activity Tolerance Progress Towards Goals Progressing Toward Goals Assessment Summary Pt reached goal of ambulation. Requires stairs prior to d/c. Able to perform bed mobility and transfers with SBA/ independent and gait with SBA. Goals Bed Mobility Goal Independent Transfer Goal Independent Gait Goal Standby Assistance Gait Distance 100' Other Goals Ability to ascend and descend stairs safely with CGA. Days to Meet Goals 2 Frequency of Treatment Frequency Of Treatment Twice a Day Treatment Plan Physical Therapy Treatment Plan Gait Training Coordination Retraining Other Recommendations and Next Treatment stairs Focus Recommendations To Nursing Amount of Assist Needed 1 Person Assist Discharge Recommendations PT Discharge Recommendations Home Equipment Needed for Home Before May need FWW. Discharge
[2018-03-08 20:00] VITALS: BP 110/71; PULSE 72; RESP 17; TEMP 36.8; O2SAT 95
[2018-03-08] MEDS: SENNOSIDES 8.6 MG TABLET 17.2 MG PO (20:20)
[2018-03-08 23:45] VITALS: BP 111/65; PULSE 67; RESP 16; TEMP 36.6; O2SAT 96
[2018-03-09] MEDS: OXYCODONE IR 5 MG TABLET 20 MG PO ×3 (03:20→09:57)
[2018-03-09 05:08] VITALS: BP 120/70; PULSE 69; RESP 16; TEMP 36.4; O2SAT 96
[2018-03-09 08:00] VITALS: BP 111/56; PULSE 75; RESP 16; TEMP 36.7; O2SAT 95
[2018-03-09] MEDS: DOCUSATE 100 MG CAPSULE PO (08:25)
--- NOTE | 2018-03-09 09:05 | PT.IPTN ---
Current Diagnoses Spinal stenosis, lumbar region without neurogenic claudication (03/07/18) Unspecified fracture of unspecified lumbar vertebra, initial encounter for closed fracture (03/07/18) Breakdown (mechanical) of internal fixation device of vertebrae, initial encounter (03/07/18) Other mechanical complication of other internal orthopedic devices, implants and grafts, initial encounter (03/07/18) Surgery Performed Operation Date: 03/07/18 10:15 Actual Procedures p L5-S1 HWR, exploration of fusion, revision laminectomy, L5-S1 TLIF w/cage placement, L4-5 hemilaminectomy, L4-5, L5-S1 TLIF - Fariha Caraballo MD Physical Therapy Treatment Note M2 PT-IP Current Condition Start: 03/08/18 10:25 Freq: NEEDED Status: Discharge Protocol: Document 03/08/18 10:25 NFW (Rec: 03/08/18 10:54 NFW [id number]) Physical Therapy Current Condition Current Condition Evaluation Date 03/08/18 Treatment Diagnosis S/P Lumbar Fusion L4-5, L5-S1, removal previous hardware Precautions Lumbar Precautions Log Roll No Twisting Limit Bending Lifting Restriction of 10 lbs Gait Belt above Incisional Area Weight Bearing Status Weight Bearing Status Full Weight Bearing M3 PT-IP Subjective Start: 03/08/18 10:25 Freq: NEEDED Status: Discharge Protocol: Document 03/09/18 09:05 GGD (Rec: 03/09/18 12:11 GGD [id number]) Subjective Physical Therapy Visit Type Type Treatment Note Visit Start Time 08:40 Visit Stop Time 09:05 Total Visit Minutes 25 Physical Therapy Visit Comments Patient Comments Pt states he is feeling better and feels ready to go home. Therapy Pain Assessment Pain When Pain Assessed At Rest Pain Present Pain Present Pain Reported Location Back Intensity 4 Scale Used Numeric (1 - 10) Description Aching Tender Pain Management Techniques Timing of Activity with Medications M4 PT-IP Mobility and Gait Start: 03/08/18 10:25 Freq: NEEDED Status: Discharge Protocol: Document 03/09/18 09:05 GGD (Rec: 03/09/18 12:11 GGD [id number]) PT-Bed Mobility Assessment Rolling Type of Rolling Log Rolling Roll to Left Level of Assist Independent Supine to Sit Supine to Sit Standby Assistance Sit to Supine Sit to Supine Standby Assistance Scooting Scooting to Edge of Bed Independent PT-Transfer Assessment Sit to and From Stand Sit to and from Stand Contact Guard Assistance Equipment Transfer Assistive Device Gait Belt Front Wheeled Walker Orthotic/Prosthetic Devices or Brace: No Transfers Transfer Destination Bed Transfer Ability Level of Assist Contact Guard Assistance Gait Assessment Gait Gait Assistance Required: Contact Guard Assist Distance (Feet) 250 Able to Maintain Weight Bearing Status Yes During Gait Assistive Devices Assistive Device Gait Belt Front Wheeled Walker Orthotic/Prosthetic Devices or Brace: No Stair Climbing Assessment Evaluation Level of Assist On Stairs Contact Guard Assistance Devices Stair Climbing Assistive Devices Left Railing Technique/Endurance Stair Climbing Direction Ascend and Descend Stair Climbing Technique Step Over Step Step to Step Number of Steps Climbed 3 Query Text: Stair Climbing Set # Repetitions (reps) 3 Comments Stair Climbing Comments two sets with step to step technique and one set with step over step technique. M5 PT-IP Objective Assessments Start: 03/08/18 10:25 Freq: NEEDED Status: Discharge Protocol: Document 03/08/18 10:25 NFW (Rec: 03/08/18 10:54 NFW [id number]) Gross Range of Motion Upper Extremity ROM Assessment Within Functional Limits Lower Extremity ROM Impairments Restricted ROM left knee secondary to TKR and other multiple knee surgeries. Sensation Assessment Sensation Gross Sensation WNL Comments Sensation Comments Main complaint of pain in LB and right hip. Minimal numbness and tingling LEs. Muscle Tone Muscle Tone WNL Yes M6 PT-IP Treatment Start: 03/08/18 10:25 Freq: NEEDED Status: Discharge Protocol: Document 03/09/18 09:05 GGD (Rec: 03/09/18 12:11 GGD [id number]) Physical Therapy Treatment Other Treatments Other Treatment Performed Hip hinge with sit <> stand. M7 PT-IP Assessment and Plan Start: 03/08/18 10:25 Freq: NEEDED Status: Discharge Protocol: Document 03/09/18 09:05 GGD (Rec: 03/09/18 12:11 GGD [id number]) PT Summary Assessment and Plan Summary Assessment Summary PT improving with mobility. He able to progress mobility. He was safe and stable with stair mobility and gait. He is safe for home D/C when medically stable. Frequency of Treatment Frequency Of Treatment Twice a Day Treatment Plan Physical Therapy Treatment Plan Bed Mobility Training Transfer Training Gait Training Therapeutic Exercise Balance Retraining Post Op Education Discharge Planning Hot or Cold Pack Neuromuscular Re-ed Coordination Retraining Manual Therapy Recommendations To Nursing Amount of Assist Needed 1 Person Assist Discharge Recommendations PT Discharge Recommendations Home with Assistance
--- NOTE | 2018-03-09 09:31 | OT.IP.TRT ---
Current Diagnoses Spinal stenosis, lumbar region without neurogenic claudication (03/07/18) Unspecified fracture of unspecified lumbar vertebra, initial encounter for closed fracture (03/07/18) Breakdown (mechanical) of internal fixation device of vertebrae, initial encounter (03/07/18) Other mechanical complication of other internal orthopedic devices, implants and grafts, initial encounter (03/07/18) Surgery Performed Operation Date: 03/07/18 10:15 Actual Procedures p L5-S1 HWR, exploration of fusion, revision laminectomy, L5-S1 TLIF w/cage placement, L4-5 hemilaminectomy, L4-5, L5-S1 TLIF - Fariha Caraballo MD Occupational Therapy Treatment Note M2 OT-IP Current Condition Start: 03/08/18 11:37 Freq: Status: Active Protocol: Document 03/08/18 11:37 [facility] (Rec: 03/08/18 12:04 [facility] [id number]) Occupational Therapy Current Condition Current Condition Evaluation Date 03/08/18 Treatment Diagnosis Spinal Stenosis Diagnosis Onset Date 03/07/18 Post Operative Precautions Lumbar Precautions Log Roll No Twisting Limit Bending Lifting Restriction of 10 lbs Gait Belt above Incisional Area Weight Bearing Status Weight Bearing Status Weight Bear as Tolerated M3 OT- IP Subjective and Pain Start: 03/08/18 11:37 Freq: Status: Active Protocol: Document 03/09/18 09:27 [facility] (Rec: 03/09/18 09:31 [facility] [id number]) OT- Subjective Occupational Therapy Visit Type Type Treatment Note Visit Start Time 09:10 Visit Stop Time 09:20 Total Visit Minutes 10 OT Pain Assessment Pain When Pain Assessed At Rest Pain Present Pain Present Denied Pain M4 OT- IP ADL's Start: 03/08/18 11:37 Freq: Status: Active Protocol: Document 03/09/18 09:27 [facility] (Rec: 03/09/18 09:31 [facility] [id number]) OT ADL-Toileting Comments OT Toileting Comments Educated pt to push up on FWW to stand , in addition to be there to assist as needed. OT ADL-Bathing Comments OT Bathing Comments Pt has shower chair at home and able to get FWW into the shower if needed. Pt wanting to shower and brush his teeth at home. Pt has good understanding for needs and to assist him. M5 OT- IP IADL's Start: 03/08/18 11:37 Freq: Status: Active Protocol: Document 03/08/18 11:37 [facility] (Rec: 03/08/18 12:04 [facility] [id number]) OT-Instrumental Activities of Daily Living Home Safety Awareness Awareness of Need for Assistance at Home Good Awareness Ability to Problem Solve Emergency Able to Problem Solve Situations M6 OT- IP Functional Cognition Start: 03/08/18 11:37 Freq: Status: Active Protocol: Document 03/08/18 11:37 [facility] (Rec: 03/08/18 12:04 [facility] [id number]) Cognitive Factors Limiting Selfcare Function Cognitive Ability Level of Alertness Alert Patient Orientation Name Place Situation Attention Span Ability Capable of Focused Attention Capable of Sustained Attention Ability to Follow Commands Able to Follow Multi-Step Commands Memory Description Short Term Impaired Safety Awareness Decreased Ability to Apply Precautions Cognitive Comments Cognitive Assessment Comments Pt needing vc to incorporate back precautions and vc for log rolling. OT- Vision and Hearing OT- Hearing Assessment OT- Hearing Assessment WFL OT- Vision Assessment Visual Acuity WFL M7 OT- IP Mobility and Balance Start: 03/08/18 11:37 Freq: Status: Active Protocol: Document 03/08/18 11:37 [facility] (Rec: 03/08/18 12:04 [facility] [id number]) OT- Bed Mobility Assessment Rolling Type of Rolling Roll to Right Level of Assistance Standby Assistance Bedrails Supine to Sit Supine to Sit Assist Standby Assistance Sit to Supine Sit to Supine Assist Minimal Assistance OT-Transfer Assessment Sit to and From Stand Sit to and from Stand Standby Assistance Contact Guard Assistance Transfers Transfer Ability Standby Assistance Technique Transfer Destination Bed Toilet Transfer Technique Stand Step Pivot Devices Transfer Assistive Devices Gait Belt 4 Wheeled Walker Comments Mobility Comments Pt initially not engaging his quads when trying to stand and grabbing his FWW to stand. OT- Balance Assessment Sitting Balance and Reactions Static Sitting Balance Ability Normal Dynamic Sitting Balance Ability Normal Standing Balance and Reactions Static Standing Balance Ability Good M8 OT- IP Objective Assessments Start: 03/08/18 11:37 Freq: Status: Active Protocol: Document 03/08/18 11:37 [facility] (Rec: 03/08/18 12:04 [facility] [id number]) OT Gross Range of Motion Upper Extremity Range of Motion Assessment Within Functional Limits OT-Muscle Tone Assessment Muscle Tone WNL Yes M9 OT- IP Assessment and Plan Start: 11/16/18 11:37 Freq: Status: Active Protocol: Document 03/09/18 09:27 [facility] (Rec: 03/09/18 09:31 [facility] [id number]) OT Summary Assessment and Plan Potential Rehabilitation Potential Excellent Analytic Complexity at Evaluation Low Summary OT Impairments Functional Mobility Bathing Progress Towards Goals Progressing Toward Goals Assessment Summary Pt doing well and to go home today. Goals Patient/Caregiver Education Goal Demonstrate Post-Op Precautions Caregiver Independent Assisting Patient Days to Meet Goals 1 Frequency of Treatment Frequency Of Treatment Once a Day Treatment Plan OT Treatment Plan Patient/Family Education Discharge Planning Discharge Recommendations OT Discharge Recommendations Home with Assistance
--- NOTE | 2018-03-09 10:01 | PM.DS.1 ---
History of Present Illness Date Patient Seen: 03/09/18 Time Patient Seen: 10:02 Chief complaint: [id number] Narrative: Patient has been having chronic back pain and worsening lumbar radiculopathy. Patient had previous lumbar instrumented fusion with pseudoarthrosis and broken hardware of x-ray and CT scan. After failing additional conservative management and after discussing risks and benefits of treatment options patient elected to proceed with surgical treatment. Patient failed multiple conservative management with worsening pain weakness and numbness in her lower extremity. Patient has been having difficulty performing activity of daily living. After discussing risks benefits of treatment options, patient elected proceed with surgery. Discharge Providers Date of admission: 03/07/18 08:32 Primary care physician: Katie Belcher DO Consults: 03/07/18 17:07 Consult to Occupational Therapy Evaluate & Treat Comment: Physician Instructions: Evaluate and treat Consult to Physical Therapy Evaluate & Treat Comment: Physician Instructions: Evaluate and Treat 03/07/18 17:09 Consult to Respiratory Therapy Evaluate & Treat Comment: Physician Instructions: Evaluate and treat Discharge provider: Laura Thrasher PA-C Discharge Date: 03/09/18 Summary Discharge Diagnosis: s/p lumbar fusion Hospital Course: Javon admitted for L4-S1 TLIF with Dr. Caraballo, and he consented to procedure. Hospital course unremarkable. On postop day 2. Patient was feeling well and ready to go home. He was taking oxycodone 5 mg prior to surgery. Patient's pain well controlled in the hospital with oxycodone 10-20 mg every 4 hr. Patient was eating and voiding without difficulty or assistance. He has been up with physical therapy. Calves are soft, compressible, nontender bilaterally. Status at Discharge Functional status at discharge: uses cane/walker Exam Vital Signs (past 8 hours): - 03/09/18 05:08 03/09/18 08:00 Temperature 97.6 F 98.0 F Pulse Rate 69 75 Respiratory Rate 16 16 Blood Pressure 120/70 111/56 L Pulse Oximetry 96 95 Oxygen Delivery Method Room Air Oxygen Flow Rate 0 Narrative Exam Narrative: Patient is sitting in bed in no acute distress. He is alert and oriented x3. Dressing on back will be cover site dressing at discharge. Sensation intact light touch throughout bilateral lower extremities. Calves are soft compressible, nontender bilaterally. Pulses are symmetrical. Pain is well controlled this morning with Vistaril, oxycodone, and Tylenol. Objective Labs Result Diagrams: 03/08/18 05:19 Discharge Plan Discharge Plan Patient Disposition: Home Discharge comment: DC home today with coversite dressing on Discharge Med Rec/Prescriptions Prescriptions: New acetaminophen 325 mg Tablet 325 mg PO Q4HR Qty: 60 RF: 0 docusate sodium 100 mg Capsule 100 mg PO BID Qty: 60 RF: 0 hydroxyzine pamoate 25 mg Capsule 25 mg PO Q6HR Qty: 60 RF: 0 oxycodone 10 mg tablet 10 mg PO Q4-6H PRN (Reason: pain) Qty: 60 RF: 0 Continue multivitamin Tablet 1 tab PO QAM RF: 0 ferrous sulfate [iron] 325 mg (65 mg iron) Tablet 325 mg PO DAILY RF: 0 Vitamin C 1 dose PO DAILY RF: 0 vitamin B complex 1 cap PO DAILY RF: 0 Discontinued hydrocodone-acetaminophen 5-325 mg Tablet 1 tab PO BID PRN (Reason: pain) RF: 0 Follow up/Referrals: Fariha Caraballo MD [Physician] - (Follow up in 10-14 days) Provider Discharge Instructions Diet: Diet as Tolerated Activity: No excessive bending, lifting, or twisting. Cold/Heat Therapy: As needed Skin/Wound/Dressing Care Report to your healthcare provider any signs of infection, such as:: chills, fever and increased pain Dressing: Leave in place until appointment. Visit Report/Discharge Packet Instructions: DI for Transforaminal Lumbar Interbody Fusion Discharge Data Primary Care Provider: Katie Belcher Attending Provider: Fariha Caraballo Admit Date/Time: 03/07/18 08:32 Quality VTE Deep Vein Thrombosis/Pulmonary Embolism Present on Admission: No
--- NOTE | 2018-03-09 10:56 | PC.NURSE ---
0730-Received report, bedside safety checks done. assumed care of patient. patient A&Ox4; bora GALLEGOS, denies numbness/no tingling. 1050- Dressing changed; serosanguineous drainage noted on both dressing; site CDI and well approximated w/marisabel intact; no foul odor, no erythema noted. all belongings sent home with patient. Discharge summary discussed and given to patient as we as new Rx. Patient leaving via private vehicle; driving patient home.
== END 2018-03-09 10:55 | disposition home or self-care (01) | DRG 454 ==
PROVIDERS: Admitting Provider Orthopaedic Surgery Orthopaedic Surgery of the Spine; Family Provider Family Medicine; PCP Family Medicine; Visit Provider Orthopaedic Surgery Orthopaedic Surgery of the Spine
PROC: 0SG00AJ Fusion of Lumbar Vertebral Joint with Interbody Fusion Device, Posterior Approach, Anterior Column, Open Approach (ICD-10-PCS; principal; 2018-03-07 10:15)
DX: M48.061 Spinal stenosis, lumbar region without neurogenic claudication (principal); M96.0 Pseudarthrosis after fusion or arthrodesis; T84.498A Other mechanical complication of other internal orthopedic devices, implants and grafts, initial encounter; M47.26 Other spondylosis with radiculopathy, lumbar region; M47.27 Other spondylosis with radiculopathy, lumbosacral region
CPT/HCPCS: 36415; 72100; 76001; 85014; 85018; 97116; 97162; 97165; 97530; 97535; C1776; C9290; J0330; J0690; J1100; J1170; J2060; J2250; J2405; J2704; J3010; J3410